=== PATIENT | female | born 1955 | race Caucasian/White ===

== ENCOUNTER 2017-08-08 07:36 | Inpatient (IN) | payer MEDICAID ==
[~2017-08-08] VITALS: Ht 160 cm; Wt 54.0 kg
[2017-08-08 07:36] VITALS: BP_SYST 156
[2017-08-08] MEDS ORDERED: ALEN10TA6 PO (07:44)
[2017-08-08] MEDS ORDERED: LACT10SO66 PO (07:44)
[2017-08-08] MEDS ORDERED: INDLA80 PO (07:44)
[2017-08-08] MEDS ORDERED: FURO-150 PO (07:44)
[2017-08-08] MEDS ORDERED: SPIR25TA4 PO (07:44)
[2017-08-08] MEDS ORDERED: LEVO500T20 PO (07:44)
[2017-08-08] MEDS ORDERED: TRAM50TA92 PO (07:44)
[2017-08-08] MEDS ORDERED: LORazepam 2 MG/ML VIAL IM ONE (07:45)
[2017-08-08] MEDS ORDERED: FOLIC ACID 1 MG, THIAMINE HCL 100 MG, MAGNESIUM SULFATE 1 GM, MVI 10 ML in NACL 0.9% 1,... IV ONE (07:45)
[2017-08-08] MEDS ORDERED: DIPHENHYDRAMINE INJ 50 MG/ML VIAL IM ONE (07:45)
[2017-08-08] MEDS ORDERED: LORazepam 2 MG/ML VIAL (FOR ER USE) ONE (07:49)
[2017-08-08 08:36] LABS: BASOPHILS % (AUTO) 0.4 % (0.0-2.0); EOSINOPHILS # (AUTO) 0.4 K/uL (0.0-0.4); EOSINOPHILS % (AUTO) 5.3 % (0.0-4.0); HEMATOCRIT 33.8 % (36-48); HEMOGLOBIN 11.2 g/dL (12.0-16.0); LYMPHOCYTES # (AUTO) 0.5 K/uL (1.0-5.5); MEAN CORPUSCULAR HEMOGLOBIN 32 pg (27-31); MEAN CORPUSCULAR HGB CONC 33 % (32-36); MEAN CORPUSCULAR VOLUME 95 fL (79.0-98.0); MONOCYTES # (AUTO) 0.4 K/uL (0.0-1.0); MONOCYTES % (AUTO) 6.1 % (1.7-9.3); NEUTROPHILS % (AUTO) 81.2 % (40.0-70.0); PLATELET COUNT (AUTO) 187 K/uL (130-430); RED BLOOD CELL COUNT(AUTO) 3.56 MIL/uL (4.2-6.2); RED CELL DISTRIBUTION WIDTH 17.7 % (9.0-15.0); WHITE BLOOD COUNT (AUTO) 7.3 K/uL (4.8-10.8)
[2017-08-08 08:47] LABS: BILIRUBIN,URINE NEGATIVE (NEGATIVE); BLOOD, URINE NEGATIVE (NEGATIVE); CLARITY/URINE CLEAR (CLEAR); COLOR,URINE YELLOW (YELLOW); GLUCOSE,URINE NEGATIVE (NEGATIVE); KETONES,URINE NEGATIVE (NEGATIVE); LEUKOCYTE ESTERASE ,URINE NEGATIVE (NEGATIVE); NITRITE, URINE NEGATIVE (NEGATIVE); PH,URINE 6.5 (5.0-8.0); PROTEIN URINE NEGATIVE (NEGATIVE); UROBILINOGEN,URINE 0.2 (0.2-1.0)
[2017-08-08] MEDS ORDERED: HALOPERIDOL LACTATE 5 MG/ML VIAL IVP ONE (09:00)
[2017-08-08 09:08] LABS: BARBITURATE, URINE NEGATIVE (NEG <=200); BENZODIAZEPINE, URINE NEGATIVE (NEG <=150); CANNABINOID, URINE NEGATIVE (NEG <=50); COCAINE, URINE NEGATIVE (NEG <=150); METHAMPHETAMINES SCREEN,URINE NEGATIVE (NEG <=500); OPIATE, URINE NEGATIVE (NEG <=100); PHENCYCLIDINE SCREEN,URINE NEGATIVE (NEG <=25); UR TRICYCLIC ANTIDEPRESSANTS NEGATIVE (NEG <=300); URINE AMPHETAMINE NEGATIVE (NEG <=500); URINE METHADONE POSITIVE (NEG <=200); URINE OXYCODONE SCREEN NEGATIVE (NEG <=100); URINE PROPOXYPHENE SCREEN NEGATIVE (NEG <=300)
[2017-08-08 09:37] LABS: ALANINE AMINOTRANSFERASE 38 U/L (12-78); ALBUMIN 3.3 g/dL (3.4-4.8); ALCOHOL, BLOOD 5 mg/dL (<10); AMYLASE 83 U/L (0-100); ANION GAP 9 (5-15); ASPARTATE AMINOTRANSFERASE 51 U/L (10-37); CHLORIDE 105 mmol/L (98-107); CREATININE 0.82 mg/dL (0.55-1.30); GLUCOSE 152 mg/dL (70-99); LIPASE 404 U/L (73-393); SODIUM SERUM 136 mmol/L (136-145); TOTAL BILIRUBIN 2.1 mg/dL (0.0-1.0); UREA NITROGEN, BLOOD 15 mg/dL (8-21)
[2017-08-08 09:55] LABS: GFR AFRICAN AMERICAN 92 mL/min (>90)
[2017-08-08 10:01] LABS: CALCIUM 9.1 mg/dL (8.4-11.0)
[2017-08-08 10:07] LABS: ACETAMINOPHEN < 1 ug/mL (1-30)
[2017-08-08] MEDS ORDERED: NACL 0.9% 1,000 ML IV ONE (10:30)
[2017-08-08] MEDS ORDERED: LACTULOSE 20 GM/30 ML UDC PO ONE (11:00)
[2017-08-08] MEDS ORDERED: METOCLOPRAMIDE HCL 10 MG/2 ML VIAL IVP ONE (11:15)
[2017-08-08 11:38] VITALS: BP_SYST 166
[2017-08-08 13:13] LABS: BASOPHILS % (AUTO) 0.4 % (0.0-2.0); EOSINOPHILS # (AUTO) 0.2 K/uL (0.0-0.4); EOSINOPHILS % (AUTO) 4.9 % (0.0-4.0); HEMATOCRIT 29.7 % (36-48); HEMOGLOBIN 9.9 g/dL (12.0-16.0); LYMPHOCYTES # (AUTO) 0.4 K/uL (1.0-5.5); LYMPHOCYTES % (AUTO) 7.6 % (20.5-51.5); MEAN CORPUSCULAR HEMOGLOBIN 32 pg (27-31); MEAN CORPUSCULAR HGB CONC 33 % (32-36); MEAN CORPUSCULAR VOLUME 95 fL (79.0-98.0); MONOCYTES # (AUTO) 0.7 K/uL (0.0-1.0); MONOCYTES % (AUTO) 13.1 % (1.7-9.3); NEUTROPHILS # (AUTO) 3.7 K/uL (1.8-7.7); PLATELET COUNT (AUTO) 131 K/uL (130-430); RED BLOOD CELL COUNT(AUTO) 3.12 MIL/uL (4.2-6.2); RED CELL DISTRIBUTION WIDTH 17.8 % (9.0-15.0)
[2017-08-08 13:26] LABS: CALCIUM 8.3 mg/dL (8.4-11.0); CREATININE 0.83 mg/dL (0.55-1.30); POTASSIUM 4.1 mmol/L (3.5-5.1)
[2017-08-08 13:32] LABS: ALBUMIN 2.6 g/dL (3.4-4.8); INR 1.3 (0.8-1.2); PROTHROMBIN TIME 13.6 SECS (9.5-12.5); TOTAL BILIRUBIN 1.8 mg/dL (0.0-1.0)
[2017-08-08] MEDS: LACTULOSE 20 GM/30 ML UDC PO SCH ×3 (13:47→21:30)
[2017-08-08] MEDS: D5NS 1,000 ML IV SCH (13:47)
[2017-08-08 16:28] VITALS: BP_SYST 159
[2017-08-08 20:00] VITALS: BP_SYST 132
[2017-08-08] MEDS: RIFAXIMIN 550 MG TABLET PO SCH (21:30)
[2017-08-08] MEDS: BANANA BAG 1 EA, FOLIC ACID 1 MG, THIAMINE HCL 100 MG, MAGNESIUM SULFATE 1 GM, MVI 10 M... IV SCH ×5 (21:32)
[2017-08-09] VITALS (8 sets, daily range): BP systolic 114–174
[2017-08-09] MEDS: LORazepam 2 MG/ML VIAL IVP PRN ×5 (02:01→20:12)
[2017-08-09] MEDS: D5NS 1,000 ML IV SCH (06:22)
[2017-08-09] MEDS ORDERED: LORazepam 2 MG/ML VIAL IVP ONE (07:15)
[2017-08-09] MEDS: RIFAXIMIN 550 MG TABLET PO SCH ×2 (08:30→21:38)
[2017-08-09 10:05] LABS: BASOPHILS % (AUTO) 0.4 % (0.0-2.0); EOSINOPHILS # (AUTO) 0.3 K/uL (0.0-0.4); EOSINOPHILS % (AUTO) 4.9 % (0.0-4.0); HEMOGLOBIN 11.1 g/dL (12.0-16.0); LYMPHOCYTES # (AUTO) 0.4 K/uL (1.0-5.5); LYMPHOCYTES % (AUTO) 6.5 % (20.5-51.5); MEAN CORPUSCULAR HEMOGLOBIN 32 pg (27-31); MEAN CORPUSCULAR HGB CONC 34 % (32-36); MEAN CORPUSCULAR VOLUME 94 fL (79.0-98.0); MONOCYTES # (AUTO) 0.5 K/uL (0.0-1.0); MONOCYTES % (AUTO) 8.6 % (1.7-9.3); NEUTROPHILS # (AUTO) 4.5 K/uL (1.8-7.7); NEUTROPHILS % (AUTO) 79.6 % (40.0-70.0); PLATELET COUNT (AUTO) 155 K/uL (130-430); RED CELL DISTRIBUTION WIDTH 17.4 % (9.0-15.0); WHITE BLOOD COUNT (AUTO) 5.7 K/uL (4.8-10.8)
[2017-08-09 10:18] LABS: CALCIUM 8.2 mg/dL (8.4-11.0); CREATININE 0.77 mg/dL (0.55-1.30); POTASSIUM 3.3 mmol/L (3.5-5.1)
[2017-08-09 10:25] LABS: TOTAL BILIRUBIN 2.7 mg/dL (0.0-1.0)
[2017-08-09] MEDS: LACTULOSE 20 GM/30 ML UDC PO SCH ×4 (11:10→23:00)
[2017-08-09] MEDS: BANANA BAG 1 EA, FOLIC ACID 1 MG, THIAMINE HCL 100 MG, MAGNESIUM SULFATE 1 GM, MVI 10 M... IV SCH ×5 (21:39)
[2017-08-10] MEDS: LORazepam 2 MG/ML VIAL IVP PRN ×5 (01:03→20:20)
[2017-08-10] MEDS: LACTULOSE 20 GM/30 ML UDC PO SCH ×9 (01:03→22:23)
[2017-08-10] MEDS: D5NS 1,000 ML IV SCH ×2 (03:58→18:00)
[2017-08-10 04:00] VITALS: BP_SYST 150
[2017-08-10 09:52] VITALS: BP_SYST 161
[2017-08-10] MEDS: RIFAXIMIN 550 MG TABLET PO SCH ×2 (10:48→20:19)
[2017-08-10 11:26] LABS: CALCIUM 8.1 mg/dL (8.4-11.0); CREATININE 0.85 mg/dL (0.55-1.30); POTASSIUM 3.4 mmol/L (3.5-5.1)
[2017-08-10 11:31] LABS: ALBUMIN 2.8 g/dL (3.4-4.8); TOTAL BILIRUBIN 3.9 mg/dL (0.0-1.0)
[2017-08-10] MEDS ORDERED: COMMUNICATION ORDER XX ONE (12:15)
[2017-08-10 12:45] VITALS: BP_SYST 146
[2017-08-10 16:28] VITALS: BP_SYST 150
[2017-08-10 20:00] VITALS: BP_SYST 140
[2017-08-10] MEDS: BANANA BAG 1 EA, FOLIC ACID 1 MG, THIAMINE HCL 100 MG, MAGNESIUM SULFATE 1 GM, MVI 10 M... IV SCH ×5 (20:20)
[2017-08-11] VITALS (7 sets, daily range): BP systolic 142–168
[2017-08-11] MEDS: LACTULOSE 20 GM/30 ML UDC PO SCH ×9 (00:15→21:37)
[2017-08-11] MEDS: LORazepam 2 MG/ML VIAL IVP PRN ×5 (00:16→23:24)
[2017-08-11] MEDS: RIFAXIMIN 550 MG TABLET PO SCH ×2 (08:17→21:38)
[2017-08-11 13:12] LABS: BASOPHILS % (AUTO) 0.5 % (0.0-2.0); EOSINOPHILS # (AUTO) 0.3 K/uL (0.0-0.4); EOSINOPHILS % (AUTO) 3.9 % (0.0-4.0); HEMATOCRIT 35.8 % (36-48); HEMOGLOBIN 12.3 g/dL (12.0-16.0); LYMPHOCYTES # (AUTO) 0.5 K/uL (1.0-5.5); LYMPHOCYTES % (AUTO) 7.6 % (20.5-51.5); MEAN CORPUSCULAR HEMOGLOBIN 32 pg (27-31); MEAN CORPUSCULAR HGB CONC 34 % (32-36); MEAN CORPUSCULAR VOLUME 92 fL (79.0-98.0); MONOCYTES # (AUTO) 0.6 K/uL (0.0-1.0); MONOCYTES % (AUTO) 8.4 % (1.7-9.3); NEUTROPHILS # (AUTO) 5.6 K/uL (1.8-7.7); NEUTROPHILS % (AUTO) 79.6 % (40.0-70.0); PLATELET COUNT (AUTO) 131 K/uL (130-430); RED BLOOD CELL COUNT(AUTO) 3.89 MIL/uL (4.2-6.2); RED CELL DISTRIBUTION WIDTH 16.3 % (9.0-15.0)
[2017-08-11 13:24] LABS: INR 1.3 (0.8-1.2); PROTHROMBIN TIME 13.5 SECS (9.5-12.5)
[2017-08-11 13:26] LABS: ALBUMIN 3.1 g/dL (3.4-4.8); BILIRUBIN,DIRECT 1.7 mg/dL (0.0-0.3); CALCIUM 8.5 mg/dL (8.4-11.0); CREATININE 0.76 mg/dL (0.55-1.30); POTASSIUM 3.4 mmol/L (3.5-5.1); TOTAL BILIRUBIN 3.9 mg/dL (0.0-1.0)
[2017-08-11] MEDS: D5NS 1,000 ML IV SCH (13:35)
[2017-08-11] MEDS: FAMOTIDINE 20 MG TABLET NG SCH (14:45)
[2017-08-11] MEDS ORDERED: FAMOTIDINE 20 MG TABLET NG ONE (16:30)
[2017-08-11] MEDS: LORazepam 1 MG TABLET PO SCH ×2 (16:42→21:36)
[2017-08-11] MEDS: BANANA BAG 1 EA, FOLIC ACID 1 MG, THIAMINE HCL 100 MG, MAGNESIUM SULFATE 1 GM, MVI 10 M... IV SCH ×5 (21:36)
[2017-08-11] MEDS: POTASSIUM CHLORIDE 20 MEQ/PKT PACKET PO SCH (21:37)
[2017-08-12] VITALS (7 sets, daily range): BP systolic 149–168
[2017-08-12] MEDS: D5NS 1,000 ML IV SCH ×2 (00:05→05:29)
[2017-08-12] MEDS: LORazepam 2 MG/ML VIAL IVP PRN (03:17)
[2017-08-12 07:08] LABS: BASOPHILS % (AUTO) 0.4 % (0.0-2.0); EOSINOPHILS # (AUTO) 0.3 K/uL (0.0-0.4); EOSINOPHILS % (AUTO) 5.2 % (0.0-4.0); HEMATOCRIT 30.5 % (36-48); HEMOGLOBIN 10.1 g/dL (12.0-16.0); LYMPHOCYTES # (AUTO) 0.5 K/uL (1.0-5.5); LYMPHOCYTES % (AUTO) 9.3 % (20.5-51.5); MEAN CORPUSCULAR HEMOGLOBIN 31 pg (27-31); MEAN CORPUSCULAR HGB CONC 33 % (32-36); MEAN CORPUSCULAR VOLUME 94 fL (79.0-98.0); MONOCYTES # (AUTO) 0.5 K/uL (0.0-1.0); MONOCYTES % (AUTO) 9.4 % (1.7-9.3); NEUTROPHILS # (AUTO) 4.4 K/uL (1.8-7.7); NEUTROPHILS % (AUTO) 75.7 % (40.0-70.0); PLATELET COUNT (AUTO) 118 K/uL (130-430); RED BLOOD CELL COUNT(AUTO) 3.27 MIL/uL (4.2-6.2); RED CELL DISTRIBUTION WIDTH 15.8 % (9.0-15.0); WHITE BLOOD COUNT (AUTO) 5.7 K/uL (4.8-10.8)
[2017-08-12 07:30] LABS: ALBUMIN 2.6 g/dL (3.4-4.8); CALCIUM 8.3 mg/dL (8.4-11.0); CREATININE 0.7 mg/dL (0.55-1.30); POTASSIUM 3.2 mmol/L (3.5-5.1); TOTAL BILIRUBIN 3.3 mg/dL (0.0-1.0)
[2017-08-12] MEDS: POTASSIUM CHLORIDE 20 MEQ/PKT PACKET PO SCH ×2 (09:57→21:05)
[2017-08-12] MEDS: LACTULOSE 20 GM/30 ML UDC PO SCH ×3 (09:57→21:01)
[2017-08-12] MEDS: FAMOTIDINE 20 MG TABLET NG SCH (09:57)
[2017-08-12] MEDS: RIFAXIMIN 550 MG TABLET PO SCH ×2 (09:58→21:07)
[2017-08-12] MEDS: LORazepam 1 MG TABLET PO SCH ×4 (09:58→21:07)
[2017-08-12] MEDS ORDERED: POTASSIUM CHLORIDE 20 MEQ/PKT PACKET PO ONE (14:00)
[2017-08-12] MEDS: cloNIDine HCL 0.2 MG TABLET PO PRN (21:06)
[2017-08-12] MEDS: BANANA BAG 1 EA, FOLIC ACID 1 MG, THIAMINE HCL 100 MG, MAGNESIUM SULFATE 1 GM, MVI 10 M... IV SCH ×5 (21:08)
[2017-08-13] VITALS (8 sets, daily range): BP systolic 104–146
[2017-08-13] MEDS: D5NS 1,000 ML IV SCH ×2 (02:19→18:55)
[2017-08-13] MEDS: LORazepam 2 MG/ML VIAL IVP PRN (03:13)
[2017-08-13 07:14] LABS: BASOPHILS % (AUTO) 0.2 % (0.0-2.0); EOSINOPHILS # (AUTO) 0.3 K/uL (0.0-0.4); EOSINOPHILS % (AUTO) 3.8 % (0.0-4.0); HEMATOCRIT 29.6 % (36-48); HEMOGLOBIN 10.2 g/dL (12.0-16.0); LYMPHOCYTES # (AUTO) 0.5 K/uL (1.0-5.5); LYMPHOCYTES % (AUTO) 6.8 % (20.5-51.5); MEAN CORPUSCULAR HEMOGLOBIN 32 pg (27-31); MEAN CORPUSCULAR HGB CONC 34 % (32-36); MEAN CORPUSCULAR VOLUME 92 fL (79.0-98.0); MONOCYTES # (AUTO) 0.8 K/uL (0.0-1.0); MONOCYTES % (AUTO) 11.6 % (1.7-9.3); NEUTROPHILS # (AUTO) 5.6 K/uL (1.8-7.7); NEUTROPHILS % (AUTO) 77.6 % (40.0-70.0); PLATELET COUNT (AUTO) 122 K/uL (130-430); RED BLOOD CELL COUNT(AUTO) 3.23 MIL/uL (4.2-6.2); RED CELL DISTRIBUTION WIDTH 16.1 % (9.0-15.0); WHITE BLOOD COUNT (AUTO) 7.2 K/uL (4.8-10.8)
[2017-08-13 07:33] LABS: ALBUMIN 2.7 g/dL (3.4-4.8); CALCIUM 8.4 mg/dL (8.4-11.0); CREATININE 0.63 mg/dL (0.55-1.30); POTASSIUM 4.2 mmol/L (3.5-5.1); TOTAL BILIRUBIN 3.3 mg/dL (0.0-1.0)
[2017-08-13] MEDS: LACTULOSE 20 GM/30 ML UDC PO SCH ×3 (10:37→20:41)
[2017-08-13] MEDS: LORazepam 1 MG TABLET PO SCH ×4 (10:38→20:40)
[2017-08-13] MEDS: FAMOTIDINE 20 MG TABLET NG SCH (10:38)
[2017-08-13] MEDS: POTASSIUM CHLORIDE 20 MEQ/PKT PACKET PO SCH ×2 (10:38→20:41)
[2017-08-13] MEDS: RIFAXIMIN 550 MG TABLET PO SCH ×2 (10:39→20:41)
[2017-08-13] MEDS ORDERED: PROPRANOLOL HCL 80 MG (INDERAL LA 80MG) PO SCH (16:00)
[2017-08-13] MEDS: PROPRANOLOL HCL 10 MG TABLET (INDERAL) NG SCH (18:26)
[2017-08-13] MEDS: QUEtiapine FUMARATE 25 MG TABLET PO SCH (18:27)
[2017-08-13] MEDS: BANANA BAG 1 EA, FOLIC ACID 1 MG, THIAMINE HCL 100 MG, MAGNESIUM SULFATE 1 GM, MVI 10 M... IV SCH ×5 (20:40)
[2017-08-14] MEDS: PROPRANOLOL HCL 10 MG TABLET (INDERAL) NG SCH ×3 (02:54→17:54)
[2017-08-14 04:45] VITALS: BP_SYST 148
[2017-08-14 07:16] LABS: CALCIUM 8.5 mg/dL (8.4-11.0); CREATININE 0.67 mg/dL (0.55-1.30); POTASSIUM 4.7 mmol/L (3.5-5.1)
[2017-08-14 07:21] LABS: BASOPHILS % (AUTO) 0.5 % (0.0-2.0); EOSINOPHILS # (AUTO) 0.3 K/uL (0.0-0.4); EOSINOPHILS % (AUTO) 4.9 % (0.0-4.0); HEMOGLOBIN 10.2 g/dL (12.0-16.0); LYMPHOCYTES # (AUTO) 0.4 K/uL (1.0-5.5); LYMPHOCYTES % (AUTO) 6.7 % (20.5-51.5); MEAN CORPUSCULAR HEMOGLOBIN 32 pg (27-31); MEAN CORPUSCULAR HGB CONC 34 % (32-36); MONOCYTES # (AUTO) 0.6 K/uL (0.0-1.0); MONOCYTES % (AUTO) 10.3 % (1.7-9.3); NEUTROPHILS # (AUTO) 4.8 K/uL (1.8-7.7); NEUTROPHILS % (AUTO) 77.6 % (40.0-70.0); PLATELET COUNT (AUTO) 113 K/uL (130-430); WHITE BLOOD COUNT (AUTO) 6.1 K/uL (4.8-10.8)
[2017-08-14 07:52] LABS: HEMATOCRIT 29.7 % (36-48); MEAN CORPUSCULAR VOLUME 93 fL (79.0-98.0); RED CELL DISTRIBUTION WIDTH 16.1 % (9.0-15.0)
[2017-08-14 08:19] VITALS: BP_SYST 151
[2017-08-14] MEDS: LORazepam 1 MG TABLET PO SCH ×4 (09:26→20:23)
[2017-08-14] MEDS: FAMOTIDINE 20 MG TABLET NG SCH (09:26)
[2017-08-14] MEDS: SPIRONOLACTONE 25 MG TABLET (ALDACTONE) PO SCH (09:26)
[2017-08-14] MEDS: POTASSIUM CHLORIDE 20 MEQ/PKT PACKET PO SCH ×2 (09:26→20:23)
[2017-08-14] MEDS: QUEtiapine FUMARATE 25 MG TABLET PO SCH ×2 (09:27→17:54)
[2017-08-14] MEDS: LACTULOSE 20 GM/30 ML UDC PO SCH ×4 (09:27→20:38)
[2017-08-14] MEDS: RIFAXIMIN 550 MG TABLET PO SCH ×2 (09:27→20:23)
[2017-08-14 11:28] VITALS: BP_SYST 137
[2017-08-14 15:17] VITALS: BP_SYST 145
[2017-08-14] MEDS: LORazepam 2 MG/ML VIAL IVP PRN (15:52)
[2017-08-14] MEDS: D5NS 1,000 ML IV SCH (15:58)
[2017-08-14 20:00] VITALS: BP_SYST 110
[2017-08-14] MEDS: BANANA BAG 1 EA, FOLIC ACID 1 MG, THIAMINE HCL 100 MG, MAGNESIUM SULFATE 1 GM, MVI 10 M... IV SCH ×5 (20:24)
[2017-08-15] VITALS (8 sets, daily range): BP systolic 108–154
[2017-08-15] MEDS: LORazepam 2 MG/ML VIAL IVP PRN ×3 (00:28→13:47)
[2017-08-15] MEDS: PROPRANOLOL HCL 10 MG TABLET (INDERAL) NG SCH ×3 (01:59→17:08)
[2017-08-15] MEDS: RIFAXIMIN 550 MG TABLET PO SCH (08:16)
[2017-08-15] MEDS: LORazepam 1 MG TABLET PO SCH ×4 (08:16→21:16)
[2017-08-15] MEDS: POTASSIUM CHLORIDE 20 MEQ/PKT PACKET PO SCH ×2 (08:16→21:17)
[2017-08-15] MEDS: LACTULOSE 20 GM/30 ML UDC PO SCH ×3 (08:16→21:00)
[2017-08-15] MEDS: FAMOTIDINE 20 MG TABLET NG SCH (08:17)
[2017-08-15] MEDS: SPIRONOLACTONE 25 MG TABLET (ALDACTONE) PO SCH (08:17)
[2017-08-15] MEDS: QUEtiapine FUMARATE 25 MG TABLET PO SCH ×2 (08:17→17:07)
[2017-08-15] MEDS: D5NS 1,000 ML IV SCH (10:37)
[2017-08-15] MEDS: BANANA BAG 1 EA, FOLIC ACID 1 MG, THIAMINE HCL 100 MG, MAGNESIUM SULFATE 1 GM, MVI 10 M... IV SCH ×5 (21:16)
[2017-08-16] MEDS: PROPRANOLOL HCL 10 MG TABLET (INDERAL) NG SCH ×3 (01:42→17:10)
[2017-08-16 03:53] VITALS: BP_SYST 159
[2017-08-16 04:00] VITALS: BP_SYST 139
[2017-08-16] MEDS: D5NS 1,000 ML IV SCH ×2 (06:35→21:45)
[2017-08-16 08:19] VITALS: BP_SYST 142
[2017-08-16] MEDS: LORazepam 1 MG TABLET PO SCH ×4 (08:27→21:49)
[2017-08-16] MEDS: LACTULOSE 20 GM/30 ML UDC PO SCH ×3 (08:27→21:50)
[2017-08-16] MEDS: QUEtiapine FUMARATE 25 MG TABLET PO SCH ×2 (08:27→17:11)
[2017-08-16] MEDS: POTASSIUM CHLORIDE 20 MEQ/PKT PACKET PO SCH ×2 (08:28→21:50)
[2017-08-16] MEDS: SPIRONOLACTONE 25 MG TABLET (ALDACTONE) PO SCH (08:28)
[2017-08-16] MEDS: FAMOTIDINE 20 MG TABLET NG SCH (08:28)
[2017-08-16] MEDS: LORazepam 2 MG/ML VIAL IVP PRN (10:14)
[2017-08-16 15:32] VITALS: BP_SYST 144
[2017-08-16 20:27] VITALS: BP_SYST 112
[2017-08-16] MEDS: BANANA BAG 1 EA, FOLIC ACID 1 MG, THIAMINE HCL 100 MG, MAGNESIUM SULFATE 1 GM, MVI 10 M... IV SCH ×5 (21:47)
[2017-08-16] MEDS: RIFAXIMIN 550 MG TABLET PO SCH (21:50)
[2017-08-17] VITALS (9 sets, daily range): BP systolic 112–170
[2017-08-17] MEDS: LORazepam 2 MG/ML VIAL IVP PRN (01:17)
[2017-08-17] MEDS: PROPRANOLOL HCL 10 MG TABLET (INDERAL) NG SCH ×3 (02:09→17:00)
[2017-08-17] MEDS ORDERED: TAMSULOSIN HCL 0.4 MG CAP PO SCH (09:00)
[2017-08-17] MEDS: POTASSIUM CHLORIDE 20 MEQ/PKT PACKET PO SCH ×2 (09:15→22:07)
[2017-08-17] MEDS: LACTULOSE 20 GM/30 ML UDC PO SCH ×3 (09:15→22:07)
[2017-08-17] MEDS: RIFAXIMIN 550 MG TABLET PO SCH ×2 (09:15→22:09)
[2017-08-17] MEDS: LORazepam 1 MG TABLET PO SCH ×4 (09:16→22:05)
[2017-08-17] MEDS: FAMOTIDINE 20 MG TABLET NG SCH (09:16)
[2017-08-17] MEDS: QUEtiapine FUMARATE 25 MG TABLET PO SCH ×3 (09:16→22:08)
[2017-08-17] MEDS: SPIRONOLACTONE 25 MG TABLET (ALDACTONE) PO SCH (09:18)
[2017-08-17] MEDS: D5NS 1,000 ML IV SCH (16:59)
[2017-08-17 18:09] LABS: CALCIUM 8.2 mg/dL (8.4-11.0); CREATININE 0.93 mg/dL (0.55-1.30); POTASSIUM 4.7 mmol/L (3.5-5.1)
[2017-08-17 18:21] LABS: TOTAL BILIRUBIN 1.7 mg/dL (0.0-1.0)
[2017-08-17 18:22] LABS: ALBUMIN 2.4 g/dL (3.4-4.8)
[2017-08-17] MEDS: BANANA BAG 1 EA, FOLIC ACID 1 MG, THIAMINE HCL 100 MG, MAGNESIUM SULFATE 1 GM, MVI 10 M... IV SCH ×5 (22:04)
[2017-08-18 00:41] VITALS: BP_SYST 94
[2017-08-18] MEDS: PROPRANOLOL HCL 10 MG TABLET (INDERAL) NG SCH ×3 (01:09→17:12)
[2017-08-18] MEDS: LORazepam 2 MG/ML VIAL IVP PRN (01:52)
[2017-08-18 03:50] VITALS: BP_SYST 130
[2017-08-18] MEDS: D5NS 1,000 ML IV SCH ×2 (06:33→22:45)
[2017-08-18 07:05] LABS: INR 1.2 (0.8-1.2); PROTHROMBIN TIME 12.5 SECS (9.5-12.5)
[2017-08-18 07:19] LABS: ALBUMIN 2.5 g/dL (3.4-4.8); BILIRUBIN,DIRECT 0.9 mg/dL (0.0-0.3); TOTAL BILIRUBIN 1.6 mg/dL (0.0-1.0)
[2017-08-18 07:38] VITALS: BP_SYST 140
[2017-08-18] MEDS: QUEtiapine FUMARATE 25 MG TABLET PO SCH ×3 (09:59→21:47)
[2017-08-18] MEDS: RIFAXIMIN 550 MG TABLET PO SCH ×2 (09:59→21:45)
[2017-08-18] MEDS: LACTULOSE 20 GM/30 ML UDC PO SCH ×3 (09:59→21:44)
[2017-08-18] MEDS: FAMOTIDINE 20 MG TABLET NG SCH (09:59)
[2017-08-18] MEDS: SPIRONOLACTONE 25 MG TABLET (ALDACTONE) PO SCH (10:00)
[2017-08-18] MEDS: POTASSIUM CHLORIDE 20 MEQ/PKT PACKET PO SCH ×2 (10:00→21:44)
[2017-08-18] MEDS: LORazepam 1 MG TABLET PO SCH ×4 (10:00→21:45)
[2017-08-18 11:59] VITALS: BP_SYST 128
[2017-08-18 16:57] VITALS: BP_SYST 110
[2017-08-18 20:00] VITALS: BP_SYST 121
[2017-08-18] MEDS: BANANA BAG 1 EA, FOLIC ACID 1 MG, THIAMINE HCL 100 MG, MAGNESIUM SULFATE 1 GM, MVI 10 M... IV SCH ×5 (21:47)
[2017-08-19] VITALS: BP_SYST 122
[2017-08-19] MEDS: PROPRANOLOL HCL 10 MG TABLET (INDERAL) NG SCH ×3 (01:46→18:26)
[2017-08-19] MEDS: cloNIDine HCL 0.2 MG TABLET PO PRN ×2 (03:58→10:17)
[2017-08-19 04:11] VITALS: BP_SYST 160
[2017-08-19] MEDS: D5NS 1,000 ML IV SCH ×2 (04:44→22:13)
[2017-08-19 08:00] VITALS: BP_SYST 130
[2017-08-19] MEDS: POTASSIUM CHLORIDE 20 MEQ/PKT PACKET PO SCH ×2 (10:17→20:16)
[2017-08-19] MEDS: RIFAXIMIN 550 MG TABLET PO SCH ×2 (10:17→20:16)
[2017-08-19] MEDS: FAMOTIDINE 20 MG TABLET NG SCH (10:17)
[2017-08-19] MEDS: LORazepam 1 MG TABLET PO SCH ×5 (10:18→20:16)
[2017-08-19] MEDS: SPIRONOLACTONE 25 MG TABLET (ALDACTONE) PO SCH (10:18)
[2017-08-19] MEDS: QUEtiapine FUMARATE 25 MG TABLET PO SCH ×3 (10:18→20:16)
[2017-08-19] MEDS: LACTULOSE 20 GM/30 ML UDC PO SCH ×3 (10:18→20:16)
[2017-08-19 12:06] VITALS: BP_SYST 113
[2017-08-19 16:05] VITALS: BP_SYST 116
[2017-08-19] MEDS: BANANA BAG 1 EA, FOLIC ACID 1 MG, THIAMINE HCL 100 MG, MAGNESIUM SULFATE 1 GM, MVI 10 M... IV SCH ×5 (20:18)
[2017-08-19 20:46] VITALS: BP_SYST 134
[2017-08-20 00:04] VITALS: BP_SYST 117
[2017-08-20] MEDS: PROPRANOLOL HCL 10 MG TABLET (INDERAL) NG SCH ×3 (03:01→17:38)
[2017-08-20 03:49] VITALS: BP_SYST 132
[2017-08-20 05:47] LABS: BASOPHILS % (AUTO) 0.5 % (0.0-2.0); EOSINOPHILS # (AUTO) 0.3 K/uL (0.0-0.4); EOSINOPHILS % (AUTO) 6.2 % (0.0-4.0); HEMATOCRIT 28.1 % (36-48); HEMOGLOBIN 9.6 g/dL (12.0-16.0); LYMPHOCYTES # (AUTO) 0.4 K/uL (1.0-5.5); MEAN CORPUSCULAR HEMOGLOBIN 33 pg (27-31); MEAN CORPUSCULAR HGB CONC 34 % (32-36); MEAN CORPUSCULAR VOLUME 96 fL (79.0-98.0); MONOCYTES # (AUTO) 0.6 K/uL (0.0-1.0); MONOCYTES % (AUTO) 13.1 % (1.7-9.3); NEUTROPHILS # (AUTO) 3.2 K/uL (1.8-7.7); NEUTROPHILS % (AUTO) 70.2 % (40.0-70.0); PLATELET COUNT (AUTO) 104 K/uL (130-430); RED BLOOD CELL COUNT(AUTO) 2.92 MIL/uL (4.2-6.2); RED CELL DISTRIBUTION WIDTH 16.5 % (9.0-15.0); WHITE BLOOD COUNT (AUTO) 4.5 K/uL (4.8-10.8)
[2017-08-20 06:04] LABS: ALBUMIN 2.5 g/dL (3.4-4.8); CALCIUM 8.5 mg/dL (8.4-11.0); CREATININE 0.66 mg/dL (0.55-1.30); POTASSIUM 4.5 mmol/L (3.5-5.1); TOTAL BILIRUBIN 1.8 mg/dL (0.0-1.0)
[2017-08-20 07:56] VITALS: BP_SYST 14; BP_SYST 141
[2017-08-20] MEDS: POTASSIUM CHLORIDE 20 MEQ/PKT PACKET PO SCH ×2 (08:39→20:11)
[2017-08-20] MEDS: LACTULOSE 20 GM/30 ML UDC PO SCH ×3 (08:39→20:11)
[2017-08-20] MEDS: FAMOTIDINE 20 MG TABLET NG SCH (08:40)
[2017-08-20] MEDS: RIFAXIMIN 550 MG TABLET PO SCH ×2 (08:40→20:11)
[2017-08-20] MEDS: LORazepam 1 MG TABLET PO SCH ×4 (08:40→20:11)
[2017-08-20] MEDS: QUEtiapine FUMARATE 25 MG TABLET PO SCH ×3 (08:41→20:11)
[2017-08-20] MEDS: SPIRONOLACTONE 25 MG TABLET (ALDACTONE) PO SCH (08:41)
[2017-08-20 12:00] VITALS: BP_SYST 102
[2017-08-20] MEDS: D5NS 1,000 ML IV SCH (15:28)
[2017-08-20 16:24] VITALS: BP_SYST 111
[2017-08-20 20:00] VITALS: BP_SYST 134
[2017-08-20] MEDS: BANANA BAG 1 EA, FOLIC ACID 1 MG, THIAMINE HCL 100 MG, MAGNESIUM SULFATE 1 GM, MVI 10 M... IV SCH ×5 (20:12)
[2017-08-21 00:01] VITALS: BP_SYST 110
[2017-08-21] MEDS: PROPRANOLOL HCL 10 MG TABLET (INDERAL) NG SCH ×3 (01:56→17:29)
[2017-08-21] MEDS: LORazepam 2 MG/ML VIAL IVP PRN ×2 (03:55→22:09)
[2017-08-21 04:16] VITALS: BP_SYST 100
[2017-08-21] MEDS: D5NS 1,000 ML IV SCH (06:35)
[2017-08-21 08:07] VITALS: BP_SYST 142
[2017-08-21] MEDS: LACTULOSE 20 GM/30 ML UDC PO SCH ×3 (09:21→21:05)
[2017-08-21] MEDS: RIFAXIMIN 550 MG TABLET PO SCH ×2 (09:21→21:05)
[2017-08-21] MEDS: FAMOTIDINE 20 MG TABLET NG SCH (09:21)
[2017-08-21] MEDS: QUEtiapine FUMARATE 25 MG TABLET PO SCH ×3 (09:21→21:05)
[2017-08-21] MEDS: POTASSIUM CHLORIDE 20 MEQ/PKT PACKET PO SCH ×2 (09:22→21:05)
[2017-08-21] MEDS: LORazepam 1 MG TABLET PO SCH ×4 (09:22→21:05)
[2017-08-21] MEDS: SPIRONOLACTONE 25 MG TABLET (ALDACTONE) PO SCH (09:26)
[2017-08-21 12:08] VITALS: BP_SYST 134
[2017-08-21 16:01] VITALS: BP_SYST 137
[2017-08-21 19:50] VITALS: BP_SYST 128
[2017-08-21] MEDS: BANANA BAG 1 EA, FOLIC ACID 1 MG, THIAMINE HCL 100 MG, MAGNESIUM SULFATE 1 GM, MVI 10 M... IV SCH ×5 (21:05)
[2017-08-22] VITALS (7 sets, daily range): BP systolic 128–165
[2017-08-22] MEDS: PROPRANOLOL HCL 10 MG TABLET (INDERAL) NG SCH ×3 (01:02→17:24)
[2017-08-22] MEDS: D5NS 1,000 ML IV SCH (02:06)
[2017-08-22] MEDS: LORazepam 2 MG/ML VIAL IVP PRN ×3 (03:58→22:29)
[2017-08-22] MEDS: FAMOTIDINE 20 MG TABLET NG SCH (08:45)
[2017-08-22] MEDS: LACTULOSE 20 GM/30 ML UDC PO SCH ×3 (08:45→20:21)
[2017-08-22] MEDS: SPIRONOLACTONE 25 MG TABLET (ALDACTONE) PO SCH (08:47)
[2017-08-22] MEDS: RIFAXIMIN 550 MG TABLET PO SCH ×2 (08:47→20:21)
[2017-08-22] MEDS: QUEtiapine FUMARATE 25 MG TABLET PO SCH ×3 (08:48→20:21)
[2017-08-22] MEDS: POTASSIUM CHLORIDE 20 MEQ/PKT PACKET PO SCH ×2 (08:48→20:22)
[2017-08-22] MEDS: LORazepam 1 MG TABLET PO SCH ×4 (08:48→20:21)
[2017-08-22] MEDS: BANANA BAG 1 EA, FOLIC ACID 1 MG, THIAMINE HCL 100 MG, MAGNESIUM SULFATE 1 GM, MVI 10 M... IV SCH ×5 (21:00)
[2017-08-23] MEDS: LORazepam 2 MG/ML VIAL IVP PRN ×4 (01:39→19:38)
[2017-08-23] MEDS: PROPRANOLOL HCL 10 MG TABLET (INDERAL) NG SCH ×3 (02:00→17:08)
[2017-08-23] MEDS: D5NS 1,000 ML IV SCH ×2 (02:45→17:30)
[2017-08-23 04:12] VITALS: BP_SYST 146
[2017-08-23 08:01] VITALS: BP_SYST 98
[2017-08-23] MEDS: LACTULOSE 20 GM/30 ML UDC PO SCH ×3 (08:14→20:16)
[2017-08-23] MEDS: LORazepam 1 MG TABLET PO SCH ×4 (08:15→20:16)
[2017-08-23] MEDS: FAMOTIDINE 20 MG TABLET NG SCH (08:15)
[2017-08-23] MEDS: POTASSIUM CHLORIDE 20 MEQ/PKT PACKET PO SCH ×2 (08:15→20:16)
[2017-08-23] MEDS: QUEtiapine FUMARATE 25 MG TABLET PO SCH ×3 (08:15→20:17)
[2017-08-23] MEDS: SPIRONOLACTONE 25 MG TABLET (ALDACTONE) PO SCH ×2 (08:49→09:16)
[2017-08-23 13:51] VITALS: BP_SYST 128
[2017-08-23 17:00] VITALS: BP_SYST 136
[2017-08-23 20:00] VITALS: BP_SYST 136
[2017-08-23] MEDS: BANANA BAG 1 EA, FOLIC ACID 1 MG, THIAMINE HCL 100 MG, MAGNESIUM SULFATE 1 GM, MVI 10 M... IV SCH ×5 (20:17)
[2017-08-24] VITALS (7 sets, daily range): BP systolic 101–164
[2017-08-24] MEDS: PROPRANOLOL HCL 10 MG TABLET (INDERAL) NG SCH ×3 (01:19→18:01)
[2017-08-24] MEDS: LORazepam 2 MG/ML VIAL IVP PRN ×4 (01:50→22:34)
[2017-08-24] MEDS: QUEtiapine FUMARATE 25 MG TABLET PO SCH ×3 (09:49→21:02)
[2017-08-24] MEDS: POTASSIUM CHLORIDE 20 MEQ/PKT PACKET PO SCH ×2 (09:49→21:02)
[2017-08-24] MEDS: LACTULOSE 20 GM/30 ML UDC PO SCH ×3 (09:49→21:02)
[2017-08-24] MEDS: SPIRONOLACTONE 25 MG TABLET (ALDACTONE) PO SCH (09:50)
[2017-08-24] MEDS: FAMOTIDINE 20 MG TABLET NG SCH (09:50)
[2017-08-24] MEDS: LORazepam 1 MG TABLET PO SCH ×4 (09:50→21:02)
[2017-08-24] MEDS: D5NS 1,000 ML IV SCH (10:03)
[2017-08-24] MEDS: BANANA BAG 1 EA, FOLIC ACID 1 MG, THIAMINE HCL 100 MG, MAGNESIUM SULFATE 1 GM, MVI 10 M... IV SCH ×5 (21:11)
[2017-08-25] MEDS: PROPRANOLOL HCL 10 MG TABLET (INDERAL) NG SCH ×3 (02:00→17:55)
[2017-08-25] MEDS: LORazepam 2 MG/ML VIAL IVP PRN ×2 (02:06→07:39)
[2017-08-25 04:22] VITALS: BP_SYST 145
[2017-08-25] MEDS: D5NS 1,000 ML IV SCH (04:45)
[2017-08-25 07:01] LABS: BASOPHILS % (AUTO) 0.4 % (0.0-2.0); EOSINOPHILS # (AUTO) 0.3 K/uL (0.0-0.4); EOSINOPHILS % (AUTO) 5.2 % (0.0-4.0); HEMATOCRIT 30.1 % (36-48); HEMOGLOBIN 10.1 g/dL (12.0-16.0); LYMPHOCYTES # (AUTO) 0.5 K/uL (1.0-5.5); LYMPHOCYTES % (AUTO) 9.5 % (20.5-51.5); MEAN CORPUSCULAR HEMOGLOBIN 33 pg (27-31); MEAN CORPUSCULAR HGB CONC 34 % (32-36); MEAN CORPUSCULAR VOLUME 97 fL (79.0-98.0); MONOCYTES # (AUTO) 0.5 K/uL (0.0-1.0); MONOCYTES % (AUTO) 8.6 % (1.7-9.3); NEUTROPHILS # (AUTO) 4.2 K/uL (1.8-7.7); NEUTROPHILS % (AUTO) 76.3 % (40.0-70.0); PLATELET COUNT (AUTO) 188 K/uL (130-430); RED CELL DISTRIBUTION WIDTH 16.8 % (9.0-15.0); WHITE BLOOD COUNT (AUTO) 5.5 K/uL (4.8-10.8)
[2017-08-25 07:21] LABS: ALBUMIN 3.2 g/dL (3.4-4.8); CALCIUM 9.1 mg/dL (8.4-11.0); CREATININE 0.86 mg/dL (0.55-1.30); POTASSIUM 4.6 mmol/L (3.5-5.1); TOTAL BILIRUBIN 1.8 mg/dL (0.0-1.0)
[2017-08-25] MEDS ORDERED: HALOPERIDOL LACTATE 5 MG/ML VIAL ONE (08:18)
[2017-08-25] MEDS: LACTULOSE 20 GM/30 ML UDC PO SCH ×3 (08:25→21:50)
[2017-08-25] MEDS: FAMOTIDINE 20 MG TABLET NG SCH (08:27)
[2017-08-25] MEDS: LORazepam 1 MG TABLET PO SCH ×4 (08:27→21:51)
[2017-08-25] MEDS: SPIRONOLACTONE 25 MG TABLET (ALDACTONE) PO SCH (08:27)
[2017-08-25] MEDS: QUEtiapine FUMARATE 25 MG TABLET PO SCH ×3 (08:27→21:50)
[2017-08-25] MEDS: POTASSIUM CHLORIDE 20 MEQ/PKT PACKET PO SCH ×2 (08:27→21:50)
[2017-08-25 08:38] VITALS: BP_SYST 136
[2017-08-25 12:48] VITALS: BP_SYST 157
[2017-08-25 16:22] VITALS: BP_SYST 138
[2017-08-25] MEDS: HALOPERIDOL LACTATE 5 MG/ML VIAL IM PRN ×2 (16:25→22:45)
[2017-08-25] MEDS ORDERED: HALOPERIDOL LACTATE 5 MG/ML VIAL IM PRN (19:30)
[2017-08-25 20:00] VITALS: BP_SYST 134
[2017-08-26] VITALS: BP_SYST 139
[2017-08-26] MEDS: PROPRANOLOL HCL 10 MG TABLET (INDERAL) NG SCH ×2 (02:47→08:37)
[2017-08-26 03:54] VITALS: BP_SYST 134
[2017-08-26] MEDS: HALOPERIDOL LACTATE 5 MG/ML VIAL IM PRN ×2 (05:46→09:47)
[2017-08-26] MEDS: LACTULOSE 20 GM/30 ML UDC PO SCH ×2 (08:35→12:46)
[2017-08-26] MEDS: POTASSIUM CHLORIDE 20 MEQ/PKT PACKET PO SCH (08:35)
[2017-08-26] MEDS: QUEtiapine FUMARATE 100 MG TABLET PO SCH ×2 (08:36→14:09)
[2017-08-26] MEDS: LORazepam 1 MG TABLET PO SCH ×2 (08:36→12:46)
[2017-08-26] MEDS: FAMOTIDINE 20 MG TABLET NG SCH (08:36)
[2017-08-26] MEDS: SPIRONOLACTONE 25 MG TABLET (ALDACTONE) PO SCH (08:36)
[2017-08-26 08:52] VITALS: BP_SYST 139
[2017-08-26 12:12] VITALS: BP_SYST 116
[2017-08-26 16:26] VITALS: BP_SYST 134
[2017-08-26 17:42] VITALS: BP_SYST 134
== END 2017-08-26 18:00 | DRG 279 ==
LOC: SED 07:36 → STU 11:04 → SMU 08-10 02:16
PROVIDERS: ADMIT Internal Medicine Hospice and Palliative Medicine; ATTEND Internal Medicine Hospice and Palliative Medicine
DX: K72.00 Acute and subacute hepatic failure without coma (principal); D61.818 Other pancytopenia; F11.20 Opioid dependence, uncomplicated; E44.1 Mild protein-calorie malnutrition; F32.9 Major depressive disorder, single episode, unspecified; F29 Unspecified psychosis not due to a substance or known physiological condition; F10.10 Alcohol abuse, uncomplicated; K70.31 Alcoholic cirrhosis of liver with ascites; E87.6 Hypokalemia; Z68.21 Body mass index [BMI] 21.0-21.9, adult; Z79.899 Other long term (current) drug therapy
CPT/HCPCS: 36415; 70450-TC; 76700-TC; 76856-TC; 80048; 80053; 80076; 80307; 81003; 82105; 82140-TC; 82150-TC; 83605; 83690-TC; 83735-TC; 84484; 85025; 85610-TC; 87040-TC; 92610-GN; 96365; 96366; 97110-GP; 97116-GP; 97530-GP; 99285; G0480; G0481; G0482; J1200; J1630; J2060; J2765; J3411; J3475; J3490; J7030; J7042